=== PATIENT | female | born 1995 | race Caucasian/White ===

== ENCOUNTER 2024-07-07 15:07 | Emergency (ER) | payer MEDICAID ==
[~2024-07-07] VITALS: Ht 167.6 cm; Wt 109.3 kg
[2024-07-07 15:10] VITALS: O2SAT 98
[2024-07-07 15:12] VITALS: TEMP 36.7; O2SAT 99
[2024-07-07 16:51] LABS: BASOPHILS % 0.1 % (0.0-2.0); EOSINOPHILS % 2.1 % (0.0-5.0); HEMATOCRIT. 39.5 % (36.0-48.0); HEMOGLOBIN. 13.4 g/dL (12.0-16.0); LYMPHOCYTES % 15.6 % (20.0-50.0); MEAN CORPUSCULAR HEMOGLOBIN 29.7 pg (28.0-32.0); MEAN CORPUSCULAR VOLUME 87.4 fL (81.0-99.0); MEAN PLATELET VOLUME 7.4 fl (7.4-10.4); MONOCYTES % 6.3 % (2.0-8.0); NEUTROPHILS % 75.9 % (40.0-76.0); PLATELET 447 x1000/uL (130-400); RED BLOOD CELL COUNT 4.52 mill/uL (4.2-5.4); RED CELL DISTRIBUTION WIDTH 12.8 % (11.6-14.6); WHITE BLOOD COUNT 13.3 x1000/uL (4.5-11.0)
[2024-07-07 16:56] LABS: CHLORIDE 107 mEq/L (98-107); POTASSIUM 3.2 mEq/L (3.5-5.1); SODIUM 137 mEq/L (136-145)
[2024-07-07 16:58] LABS: CALCIUM 9.3 mg/dL (8.7-10.4); CARBON DIOXIDE 18 mEq/L (21-32)
[2024-07-07 17:03] LABS: CREATININE 0.7 mg/dL (0.6-1.0); GLUCOSE 95 mg/dL (70-105); UREA NITROGEN BLOOD < 5 mg/dL (9-23)
[2024-07-07 17:05] LABS: ALANINE AMINOTRANSFERASE 18 IU/L (10-49); ALBUMIN 4.9 g/dL (3.2-4.8); ASPARTATE AMINOTRANSFERASE 23 IU/L (<34); BILIRUBIN DIRECT 0.2 mg/dL (<=3.0); BILIRUBIN TOTAL 0.7 mg/dL (0.1-1.0); PROTEIN TOTAL 8.4 g/dL (6.0-8.3)
[2024-07-07 18:00] LABS: HCG SCREEN NEGATIVE
[2024-07-07] MEDS ORDERED: ONDANSETRON 4MG ODT PO ONE (18:00)
[2024-07-07] MEDS ORDERED: KETOROLAC 30MG/ML VIAL IM ONE (18:00)
[2024-07-07 20:14] VITALS: BP 141/89; PULSE 87; RESP 18
[2024-07-07] MEDS: KETOROLAC 30MG/ML VIAL IM NR (20:14)
[2024-07-07] MEDS: ONDANSETRON 4MG ODT PO NR (20:14)
[2024-07-07 21:18] LABS: CLARITY URINE CLEAR (CLEAR); COLOR URINE YELLOW (YELLOW); GLUCOSE URINE NEGATIVE (NEGATIVE); KETONES URINE TRACE (NEGATIVE); LEUKOCYTE ESTERASE URINE 3+ (NEGATIVE); NITRITE URINE NEGATIVE (NEGATIVE); OCCULT BLOOD URINE TRACE (NEGATIVE); PH URINE 6.5 (4.5-8.0); PROTEIN URINE NEGATIVE (NEGATIVE); SPECIFIC GRAVITY URINE 1.004 (1.005-1.030); UROBILINOGEN URINE 0.2 E.U./dL (0.2-1.0)
[2024-07-07] MEDS: POTASSIUM CHLORIDE 20MEQ TABLET SR PO ONE (21:31)
[2024-07-07] MEDS: LOPERAMIDE HCL 2MG CAPSULE PO ONE (21:31)
[2024-07-07] MEDS: DICYCLOMINE HCL 10MG CAPSULE PO ONE (21:44)
[2024-07-07 21:58] LABS: BACTERIA URINE 2+; RBC URINE 0-2 /hpf (0-2); SQUAMOUS EPITHELIAL CELL URINE 1+ /lpf (RARE/1+)
[2024-07-07] MEDS ORDERED: ONDA-239 PO (22:22)
[2024-07-07] MEDS ORDERED: LOPE2TAB26 MT (22:22)
[2024-07-07] MEDS ORDERED: CEFP200T14 MT (22:22)
[2024-07-07] MEDS ORDERED: PYR200 MT (22:23)
== END 2024-07-07 22:34 | disposition home or self-care (01) ==
LOC: ER 15:07
DX: N39.0 Urinary tract infection, site not specified (principal); A08.4 Viral intestinal infection, unspecified; E03.9 Hypothyroidism, unspecified; Z90.49 Acquired absence of other specified parts of digestive tract; Z98.890 Other specified postprocedural states
CPT/HCPCS: 80076; 80048; 81003; 81025; 84703; 85025; 86850; 86900; 86901; 36415; 74176; 96372; 99285; Q0162; J1885; Z7610